=== PATIENT | male | born 1990 | race Caucasian/White ===

== ENCOUNTER 2017-09-20 20:11 | Emergency (ER) | payer MEDICAID, OTHER ==
[2017-09-20] MEDS: LIDOCAINE 1% (MDV) 20 ML INJ SC (23:19)
[2017-09-20] MEDS: AZITHROMYCIN 250 MG TAB PO (23:19)
[2017-09-20] MEDS: CEFTRIAXONE 500 MG INJ IM (23:19)
[2017-09-21 00:27] LABS: URINE BLOOD (Dip) POC Negative (NEGATIVE); URINE GLUCOSE (Dip) POC Negative (NEGATIVE); URINE KETONES (Dip) POC Trace (NEGATIVE); URINE LEUKOCYTE EST (Dip) POC 1+ (NEGATIVE); URINE NITRITE (Dip) POC Negative (NEGATIVE); URINE TOTAL PROTEIN POC 1+ (NEGATIVE)
== END 2017-09-21 00:33 | disposition home or self-care (01) ==
LOC: FTE 09-21 00:33
DX: R30.0 Dysuria (principal)
CPT/HCPCS: 81003; 87086; 87591; 96372; 99284-25

== ENCOUNTER 2018-03-24 21:39 | Emergency (ER) | payer OTHER, MEDICAID | END 2018-03-24 22:43 | disposition home or self-care (01) | LOC: FTE 21:39 | DX: B02.9 Zoster without complications (principal) | CPT/HCPCS: 99282; Z7502 ==